=== PATIENT | male | born 1950 | race Caucasian/White ===

== ENCOUNTER 2019-11-23 20:33 | Inpatient (IN) ==
[2019-11-23] MEDS ORDERED: DILTIAZEM 50 MG/10 ML VIAL IV ONE (20:55)
[2019-11-23] MEDS ORDERED: AZITHROMYCIN INJ 500 MG in SODIUM CHLORIDE 0.9% 250 ML IV STA (21:09)
[2019-11-23] MEDS ORDERED: PIPERACILLIN/TAZOBACTAM 3,375 MG in SODIUM CHLORIDE 0.9% 100 ML IV STA (21:09)
[2019-11-23] MEDS ORDERED: FUROSEMIDE 100 MG/10 ML VIAL IV STA (21:09)
[2019-11-23] MEDS ORDERED: methylPREDNISolone SOD SUC 125 MG/2 ML VIAL IV STA (21:09)
[2019-11-23] MEDS ORDERED: MORPHINE 4 MG/1 ML VIAL IV STA (21:09)
[2019-11-23] MEDS ORDERED: ONDANSETRON 4 MG/2 ML VIAL IV STA (21:09)
[2019-11-23] MEDS ORDERED: DILTIAZEM 50 MG/10 ML VIAL IV STA (21:19)
[2019-11-23] MEDS ORDERED: dilTIAZem Drip 125 MG/125 ML PREMIX IV SCH (21:30)
[2019-11-23 21:46] LABS: Basophils % 0.2 % (0.0-0.8); Eosinophils % 0.2 % (0.00-10.9); Hematocrit 46.5 VOL% (42.0-52.0); Hemoglobin 14.8 GM/DL (14.0-18.0); Immature Granulocytes % 0.7 %; Immature Granulocytes Absolute 0.12 #; Lymphocytes # 1.3 10*3/uL (1.4-4.0); Lymphocytes % 7.8 % (21.2-54.2); Mean Corpuscular HGB Conc 31.8 GM/DL (32-36); Mean Corpuscular Volume 96.3 FL (87-102); Mean Platelet Volume 11.8 FL (9.6-12.0); Monocytes % 9.5 % (1.7-12.7); Neutrophils % 81.6 % (38.7-73.9); Platelet Count 156 T/CUMM (130-400); Red Blood Count 4.83 MC/CUMM (3.8-5.5); Red Cell Distribution Width 15.4 % (9.3-17.3); White Blood Count 17.3 T/CUMM (4-12)
[2019-11-23 21:58] LABS: INR 1.4; PT Patient Result 15.2 SECS (9.8-11.9)
[2019-11-23 22:00] LABS: ABG Base Excess -1.5 MMOL/L (-2.5-2.5); ABG Oxygen Saturation 89.1 % (95-100); ABG PCO2 33.5 MM HG (35-48); ABG PH 7.425 (7.35-7.45); ABG PO2 57.7 MM HG (80-95); ABG TCO2 18.8 MMOL/L (23-27)
[2019-11-23 22:11] LABS: Albumin 3.7 G/DL (3.4-5.0); Bilirubin,Total 2.3 MG/DL (0.2-1.0); Calcium 8.7 MG/DL (8.5-10.1); Ferritin 105.6 ng/ml (26-388); Osmolality,Calculated 269.5 MOS/KG (273-304); Total Protein 7.1 G/DL (6.4-8.3)
[2019-11-24 01:33] LABS: Apearance,Urine CLOUDY (Clear); Bilirubin,Urine Negative (Negative); Blood, Urine Large mg/dL (Negative); Glucose,Urine (UA) Negative (Negative); Ketones,Urine Negative (Negative); Nitrite,Urine Negative (Negative); Protein,Urine 100 MG/DL; RBC,Urine 809 /HPF (0-4); Squamous Epithelial Cell,Urine Occasional /HPF (0-10); Urine Color Amber (Yellow); Urine Specific Gravity 1.026 (1.001-1.035); Urine Urobilinogen < 2.0 EU/DL (0.2-1.0); WBC,Urine 77 /HPF (0-6)
[2019-11-24] MEDS ORDERED: DOCUSATE SODIUM 100 MG CAPSULE PO PRN (04:25)
[2019-11-24] MEDS ORDERED: ONDANSETRON 4 MG/2 ML VIAL IV PRN (04:25)
[2019-11-24] MEDS ORDERED: ACETAMINOPHEN 325 MG TABLET PO PRN (04:25)
[2019-11-24] MEDS ORDERED: PIPERACILLIN/TAZOBACTAM 3,375 MG in SODIUM CHLORIDE 0.9% 100 ML IV SCH (06:00)
[2019-11-24] MEDS ORDERED: APIXABAN 2.5 MG TABLET PO SCH (09:00)
[2019-11-24] MEDS ORDERED: carvediloL 6.25 MG TABLET PO SCH (09:00)
[2019-11-24] MEDS: OSELTAMIVIR 30 MG CAPSULE PO SCH ×2 (10:13→21:20)
[2019-11-24] MEDS: FUROSEMIDE 40 MG/4 ML VIAL IV SCH ×2 (10:13→17:45)
[2019-11-24] MEDS: carvediloL 6.25 MG TABLET PO SCH ×2 (10:13→21:20)
[2019-11-24] MEDS: ASPIRIN EC 81 MG TABLET PO SCH (10:13)
[2019-11-24] MEDS: cefTRIAXone 1,000 MG in SYRINGE 1 EACH IV SCH (17:45)
[2019-11-24] MEDS: APIXABAN 5 MG TABLET PO SCH (21:20)
[2019-11-25] MEDS: FUROSEMIDE 40 MG/4 ML VIAL IV SCH ×2 (09:52→15:15)
[2019-11-25] MEDS: carvediloL 6.25 MG TABLET PO SCH (09:54)
[2019-11-25] MEDS: OSELTAMIVIR 30 MG CAPSULE PO SCH (09:54)
[2019-11-25] MEDS: APIXABAN 5 MG TABLET PO SCH (09:54)
[2019-11-25] MEDS: ASPIRIN EC 81 MG TABLET PO SCH (09:54)
[2019-11-25 12:46] LABS: Basophils % 0.1 % (0.0-0.8); Hematocrit 44.2 VOL% (42.0-52.0); Immature Granulocytes % 0.5 %; Immature Granulocytes Absolute 0.06 #; Lymphocytes # 0.8 10*3/uL (1.4-4.0); Lymphocytes % 6.6 % (21.2-54.2); Mean Corpuscular HGB Conc 31.7 GM/DL (32-36); Mean Corpuscular Volume 95.7 FL (87-102); Mean Platelet Volume 11.4 FL (9.6-12.0); Neutrophils % 87.8 % (38.7-73.9); Platelet Count 135 T/CUMM (130-400); Red Blood Count 4.62 MC/CUMM (3.8-5.5); Red Cell Distribution Width 15.5 % (9.3-17.3); White Blood Count 12.2 T/CUMM (4-12)
[2019-11-25 13:11] LABS: Albumin 3.4 G/DL (3.4-5.0); Bilirubin,Total 1.3 MG/DL (0.2-1.0); Calcium 8.6 MG/DL (8.5-10.1); Osmolality,Calculated 282.5 MOS/KG (273-304); Total Protein 7.1 G/DL (6.4-8.3)
[2019-11-25 13:13] LABS: Risk Ratio 4.04; VLDL CHOLESTEROL 15.6 MG/DL
[2019-11-25] MEDS: cefTRIAXone 1,000 MG in SYRINGE 1 EACH IV SCH (14:20)
[2019-11-25 14:22] VITALS: BP 108/72
== END 2019-11-25 16:30 | disposition home health service (06) | DRG 872 ==
LOC: EDBD → EDUNIT# → N.ED 20:33 → N.EDINP 11-24 01:24 → N.2W 11-24 01:55
PROVIDERS: ADMIT Internal Medicine; ATTEND Internal Medicine